=== PATIENT | female | born 1995 | race Two or more races ===

== ENCOUNTER 2021-03-22 10:17 | Emergency (ER) | payer OTHER ==
[~2021-03-22] VITALS: Ht 160 cm; Wt 86.2 kg
== END 2021-03-22 11:14 | disposition home or self-care (01) ==
LOC: ER 10:17
DX: J03.90 Acute tonsillitis, unspecified (principal)

== ENCOUNTER 2023-03-26 11:44 | Emergency (ER) | payer OTHER ==
[~2023-03-26] VITALS: Ht 157.5 cm; Wt 81.6 kg
== END 2023-03-26 14:18 | disposition home or self-care (01) ==
LOC: ER 11:44
DX: J00 Acute nasopharyngitis [common cold] (principal)

== ENCOUNTER 2024-03-20 10:22 | Emergency (ER) | payer OTHER ==
[~2024-03-20] VITALS: Ht 157.5 cm; Wt 86.2 kg
[2024-03-20] MEDS ORDERED: KETOROLAC TROMETHAMINE 60 MG VIAL IM STA (11:16)
[2024-03-20 12:35] LABS: HEMATOCRIT 42.9 % (36.0-45.00); HEMOGLOBIN 14.5 g/dL (12.0-15.00); MEAN CELL VOLUME 87.3 fL (80.00-100.00); MEAN CORPUSCULAR HEMOGLOBIN 29.4 pg (27.00-32.0); MEAN CORPUSCULAR HGB CONC 33.7 g/dl (32.0-36.0); PLATELET COUNT 373 K/uL (150-450); RED BLOOD COUNT 4.92 M/uL (4.00-6.00); RED CELL DISTRIBUTION WIDTH 12.9 % (11.5-14.5)
[2024-03-20 13:08] LABS: PH,URINE 5.5 (5.0-8.0); URINE APPEARANCE Clear; URINE BILIRRUBIN Negative (NEGATIVE); URINE BLOOD Trace; URINE COLOR Yellow; URINE GLUCOSE Negative (NEGATIVE); URINE KETONE Negative (NEGATIVE); URINE LEUKOCYTE Negative; URINE NITRATE Negative; URINE PROTEIN Negative (NEGATIVE); URINE UROBILINOGEN 0.2 E.U./dl
[2024-03-20 13:13] LABS: URINE BACTERIA 473.6 uL (0.0-1933); URINE EPITHELIAL CELLS 8.8 uL (0.0-38.8); URINE RBC 15.4 uL (0.0-20.8)
[2024-03-20 13:34] LABS: CALCIUM 8.9 mg/dL (8.5-10.1); CREATININE SERUM 1.03 mg/dL (0.55-1.02); GFR 62.92; POTASSIUM 3.42 mEq/L (3.5-5.1)
== END 2024-03-20 14:20 | disposition home or self-care (01) ==
LOC: ER 10:24
PROVIDERS: General Practice
DX: N20.1 Calculus of ureter (principal); K80.20 Calculus of gallbladder without cholecystitis without obstruction; K76.0 Fatty (change of) liver, not elsewhere classified
CPT/HCPCS: 36415; 74176; 96372; 99284; J1885